=== PATIENT | female | born 1990 | race African-American/Black ===

== ENCOUNTER 2023-06-13 11:50 | Observation (INO) | payer MEDICAID ==
[2023-06-13] MEDS ORDERED: PREN-96 PO (13:01)
== END 2023-06-13 13:11 | disposition home or self-care (01) ==
LOC: LDRP 11:50 → UNDOADMOB 11:50 → LDRP 12:04
PROVIDERS: ADMIT Obstetrics & Gynecology; ATTEND Obstetrics & Gynecology
DX: O99.323 Drug use complicating pregnancy, third trimester (principal); O26.893 Other specified pregnancy related conditions, third trimester; R10.9 Unspecified abdominal pain; M54.9 Dorsalgia, unspecified; F12.90 Cannabis use, unspecified, uncomplicated; Z3A.29 29 weeks gestation of pregnancy
CPT/HCPCS: 59025; 81002; 94760; G0378